=== PATIENT | male | born 1960 | race African-American/Black ===

== ENCOUNTER 2018-05-19 13:22 | Emergency (ER) | payer MEDICAID ==
[~2018-05-19] VITALS: Ht 182.9 cm; Wt 85.0 kg
[2018-05-19 13:37] VITALS: BP 160/92
== END 2018-05-19 15:15 | disposition left against medical advice (07) ==
LOC: ER 15:02
DX: Z53.21 Procedure and treatment not carried out due to patient leaving prior to being seen by health care provider (principal)

== ENCOUNTER 2020-08-18 04:55 | Emergency (ER) | payer MEDICAID, OTHER ==
[~2020-08-18] VITALS: Ht 188 cm; Wt 78.0 kg
[2020-08-18 05:30] VITALS: BP 169/92
== END 2020-08-18 06:55 | disposition home or self-care (01) ==
LOC: ER 04:55
DX: R53.83 Other fatigue (principal); Z59.0 Homelessness
CPT/HCPCS: 93005; 99283